=== PATIENT | male | born 1945 | race Caucasian/White ===

== ENCOUNTER → 2023-08-07 | Outpatient (CLI) | payer MEDICARE, SELFPAY ==
--- NOTE | 2023-08-07 06:35 | ECHOD_ITS ---
Reason For Study: AFIB Procedure This was a 2D Doppler, Color Flow transthoracic echocardiogram. Exam performed in department. Left Ventricle Normal LV size. Moderate concentric left ventricular hypertrophy. Left ventricular systolic function is normal. The estimated ejection fraction is 60 %. No regional wall motion abnormalities noted. Right Ventricle Normal RV size. Normal systolic function. Atria The left atrium is moderately enlarged. The right atrium is moderately enlarged. Mitral Valve Normal mitral valve. Tricuspid Valve Normal tricuspid valve. Mild (1+) tricuspid valve insufficiency. Pulmonary artery systolic pressure is 28 mmHg. Great Vessels Normal aortic root. The pulmonary artery is normal size. Normal inferior vena cava. Pericardium/Pleural No pericardial effusion. MMode/2D Measurements & Calculations LVIDd: 5.0 cm IVSd: 1.5 cm LAV(MOD-bp): 90.1 ml LVIDs: 3.9 cm LVPWd: 1.3 cm LAV(MOD-bp) Indexed: 35.3 ml/m2 FS: 20.5 % LAV(MOD-sp2): 82.2 ml LAV(MOD-sp4): 90.2 ml LVAd ap4: 31.2 cm2 SV(MOD-sp4): 50.3 ml SV(sp4-el): 52.5 ml LVLd ap4: 9.0 cm EDV(MOD-sp4): 91.2 ml EDV(sp4-el): 91.9 ml LVAs ap4: 19.0 cm2 LVLs ap4: 7.8 cm ESV(MOD-sp4): 41.0 ml ESV(sp4-el): 39.4 ml EF(MOD-sp4): 55.1 % EF(sp4-el): 57.1 % LA A4 area: 28.2 cm2 LA dimension(2D): 4.5 cm RA A4 area: 30.5 cm2 TAPSE: 1.8 cm Doppler Measurements & Calculations MV E max cami: 106.5 cm/sec MV P1/2t max cami: 106.6 cm/sec Ao V2 max: 124.8 cm/sec MV P1/2t: 48.4 msec Ao max P.2 mmHg MV dec slope: 645.8 cm/sec2 Ao V2 mean: 84.5 cm/sec Ao mean P.3 mmHg MVA(P1/2t): 4.5 cm2 Ao V2 VTI: 25.6 cm AV (velocity ratio): 0.76 LV V1 max: 98.9 cm/sec PA V2 max: 99.4 cm/sec TR max cami: 243.0 cm/sec LV V1 max P.9 mmHg PA V2 mean: 68.4 cm/sec TR max P.6 mmHg LV V1 mean P.8 mmHg LV V1 mean: 60.8 cm/sec LV V1 VTI: 19.4 cm ECHO/Echo Complete Interpretation Summary Normal LV size. Left ventricular systolic function is normal. The estimated ejection fraction is 60 %. The left atrium is moderately enlarged. The right atrium is moderately enlarged. Moderate concentric left ventricular hypertrophy. Ordering Physician: uGero Gaffney Referring Physician: Guero Gaffney Performed By: Estella Rollins RCS
--- NOTE | 2023-08-07 18:07 | STRESSREP ---
Stress Test Report Pharmacologic myocardial perfusion stress test. 78-year-old man with a history of atrial fibrillation Resting EKG demonstrates atrial fibrillation with a rate of 76 bpm. Resting blood pressure is 122/78 mmHg. 0.4 mg of regadenoson was infused per usual protocol followed by rapid intravenous saline flush injection. Continuous EKG monitoring was performed. The maximum heart rate was 92 bpm which was 65% of max impacted heart rate the maximum workload was 1 metabolic equivalent. At rest there were no ST or T wave changes noted to suggest ischemia and at peak infusion nonspecific ST changes were noted which did not meet the criteria for ischemia. No clinical angina is noted. The final blood pressure was 142/88 mmHg. Myocardial perfusion protocol. 11.8 mCi of technetium 99m sestamibi was injected at rest. 0.4 mg of regadenoson was infused per usual protocol. At peak infusion 34.7 mCi of technetium 99m sestamibi was injected stress images were obtained stress and rest images were reconstructed and compared in the short axis vertical long and horizontal long axis. Gated images were also obtained. Perfusion SPECT analysis: Review of the stress images demonstrate normal uptake of tracer noted in all areas of the myocardium except for small portion in the basal anterolateral zone. The resting images similar demonstrated normal uptake of tracer noted in all areas of the myocardium except for a small portion in the basal anterolateral zone. The above is suggestive of a previous infarct in this area with no reversibility to suggest ischemia. Gated SPECT analysis: The gated ejection fraction is 59%. Conclusion: Normal pharmacologic myocardial perfusion stress test. Preserved ejection fraction. 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
== END | disposition home or self-care (01) ==
PROVIDERS: PCP Internal Medicine; Referring Provider Internal Medicine Cardiovascular Disease; Visit Provider Internal Medicine Cardiovascular Disease
DX: R94.31 Abnormal electrocardiogram [ECG] [EKG] (principal); I48.20 Chronic atrial fibrillation, unspecified
CPT/HCPCS: 78452; 93017; 93306; A9500; A4216; J2785

== ENCOUNTER → 2024-04-30 | Outpatient (CLI) | payer MEDICARE, SELFPAY ==
--- NOTE | 2024-04-30 09:48 | CDU_ITS ---
Reason For Study: Lightheadedness Rt. Velocities/BP Lt. Velocities/BP Prox CCA 106.3/21.6 cm/sec. Prox CCA 84.2/19.3 cm/sec. Mid CCA 89.1/21.6 cm/sec. Mid CCA 65.5/18.2 cm/sec. Dist CCA 99.0/19.2 cm/sec. Dist CCA 66.9/18.6 cm/sec. Prox ICA 67.7/19.3 cm/sec. Prox ICA 63.8/15.9 cm/sec. Mid ICA 74.3/25.9 cm/sec. Mid ICA 73.2/24.5 cm/sec. Dist ICA 84.2/25.9 cm/sec. Dist ICA 77.4/24.5 cm/sec. Rt. ICA/CCA = 1.0. Lt. ICA/CCA = 1.2. Prox ECA 144.0/12.3 cm/sec. Prox ECA 55.9/7.6 cm/sec. Rt. Vert. 42.4/9.2 cm/sec. Lt. Vert. 51.6/15.7 cm/sec. Right Extracranial There is homogeneous, smooth atherosclerotic plaque noted in the right common carotid artery. There is heterogeneous, irregular atherosclerotic plaque noted in the right internal carotid artery. There is heterogeneous, irregular atherosclerotic plaque noted in the right external carotid artery. Antegrade flow is noted in the right vertebral artery. Left Extracranial There is homogeneous, smooth atherosclerotic plaque noted in the left common carotid artery. There is heterogeneous, irregular atherosclerotic plaque noted in the left internal carotid artery. There is homogeneous, smooth atherosclerotic plaque noted in the left external carotid artery. Antegrade flow is noted in the left vertebral artery. Procedure Carotid Duplex [id number]. This is a Carotid Duplex examination using B-mode, color flow and specral Doppler. The exam was diagnostic. Exam performed in department. VL/Carotid Duplex Ultrasound Interpretation Summary Mild (<50%) stenosis right extracranial internal carotid. Mild (<50%) stenosis left extracranial internal carotid. Patent and antegrade vertebrals bilaterally. Ordering Physician: Nahomi Patel Referring Physician: Nahomi Patel Performed By: Bib Roman RVT and Student
== END | disposition home or self-care (01) ==
PROVIDERS: PCP Internal Medicine; Referring Provider Nurse Practitioner Gerontology; Visit Provider Nurse Practitioner Gerontology
DX: R42 Dizziness and giddiness (principal)
CPT/HCPCS: 93225; 93226; 93880